=== PATIENT | male | born 1980 | race Caucasian/White ===

== ENCOUNTER 2023-01-13 17:48 | Emergency (ER) | payer OTHER ==
[~2023-01-13] VITALS: Ht 177.8 cm; Wt 86.2 kg
[2023-01-13] MEDS ORDERED: NAPROSYN500 MG PO (18:45)
[2023-01-13] MEDS ORDERED: CYCLOBENZAPRINE10 MG PO (18:45)
== END 2023-01-13 19:21 | disposition home or self-care (01) ==
LOC: ED 17:48
DX: M54.50 Low back pain, unspecified (principal)